=== PATIENT | female | born 1990 | race African-American/Black ===

== ENCOUNTER 2019-03-01 15:02 | Observation (INO) | payer MEDICAID | END 2019-04-23 14:54 | disposition home or self-care (01) | LOC: 8 EST LDRP 04-23 13:51 | PROVIDERS: ADMIT Obstetrics & Gynecology; ATTEND Obstetrics & Gynecology | DX: O62.9 Abnormality of forces of labor, unspecified (principal); Z3A.39 39 weeks gestation of pregnancy | CPT/HCPCS: 99281; G0378 ==

== ENCOUNTER 2019-04-26 17:14 | Inpatient (IN) | payer MEDICAID ==
[~2019-04-26] VITALS: Ht 167.6 cm; Wt 173.7 kg
[2019-04-26] MEDS ORDERED: LACTATED RINGERS 1,000 ML IV SCH ×2 (18:39→19:15)
[2019-04-26] MEDS ORDERED: DEXT 5%/LR + PITOCIN 20UNITS/L 1,000 ML IV SCH (18:39)
[2019-04-26] MEDS ORDERED: BUTORPHANOL TARTRATE 2 MG/ML VIAL IV PRN (18:45)
[2019-04-26] MEDS ORDERED: LIDOCAINE HCL 1% 20ML VIAL (Pyxis) INJ INFIL SCH (18:45)
[2019-04-26] MEDS ORDERED: MISOPROSTOL 100MCG TABLET VG SCH (18:45)
[2019-04-26] MEDS ORDERED: METHYLERGONOVINE MALEATE 0.2 MG/ML IM PRN (18:45)
[2019-04-26] MEDS ORDERED: DINOPROSTONE 10MG VAGINAL INSERT VG NR (18:45)
[2019-04-26] MEDS ORDERED: CARBOPROST TROMETHAMINE 250 MCG/ML AMPUL IM PRN (18:45)
[2019-04-26] MEDS ORDERED: NALOXONE HCL 0.4 MG/ML 1ML VIAL IM PRN (18:45)
[2019-04-26 18:58] LABS: CLARITY URINE CLOUDY (CLEAR); COLOR URINE YELLOW (YELLOW); KETONES URINE TRACE (NEGATIVE); LEUKOCYTE ESTERASE URINE 1+ (NEGATIVE); NITRITE URINE NEGATIVE (NEGATIVE); OCCULT BLOOD URINE NEGATIVE (NEGATIVE); PH URINE 6.5 (4.5-8.0); PROTEIN URINE TRACE (NEGATIVE); SPECIFIC GRAVITY URINE 1.028 (1.005-1.030)
[2019-04-26 19:00] LABS: BASOPHILS % 0.2 % (0.0-2.0); EOSINOPHILS % 0.3 % (0.0-5.0); HEMATOCRIT. 32.5 % (36.0-48.0); HEMOGLOBIN. 10.6 g/dL (12.0-16.0); LYMPHOCYTES % 16.8 % (20.0-50.0); MEAN CORPUSCULAR HEMOGLOBIN 29.1 pg (28.0-32.0); MEAN CORPUSCULAR VOLUME 89.8 fL (81.0-99.0); MEAN PLATELET VOLUME 9.5 fl (7.4-10.4); MONOCYTES % 7.2 % (2.0-8.0); NEUTROPHILS % 75.5 % (40.0-76.0); PLATELET 348 x1000/uL (130-400); RED BLOOD CELL COUNT 3.62 mill/uL (4.2-5.4); RED CELL DISTRIBUTION WIDTH 15.9 % (11.6-14.6)
[2019-04-26 19:05] LABS: INR 0.9; PARTIAL THROMBOPLASTIN TIME 26.5 sec (23.4-31.0); PROTHROMBIN TIME 9.3 sec (9.6-11.0)
[2019-04-26 19:09] LABS: *AMPHETAMINES SCREEN URINE NEGATIVE (NEGATIVE); *BARBITURATES SCREEN URINE NEGATIVE (NEGATIVE); *BENZODIAZEPINES SCREEN URINE NEGATIVE (NEGATIVE); *COCAINE SCREEN URINE NEGATIVE (NEGATIVE); METHADONE URINE SCREEN NEGATIVE (NEGATIVE)
[2019-04-26 19:11] LABS: CANNABINOID URINE SCREEN NEGATIVE (NEGATIVE); OPIATES URINE SCREEN NEGATIVE (NEGATIVE); PHENCYCLIDINE URINE SCREEN NEGATIVE (NEGATIVE)
[2019-04-26 19:38] LABS: HEPATITIS B SURFACE ANTIGEN NEGATIVE
[2019-04-27] MEDS ORDERED: TETANUS, DIPHTHERIA, PERTUSSIS VAC/PF 0.5ML (>7YR OLD) IM ONE (07:15)
[2019-04-27] MEDS ORDERED: BISACODYL 10MG SUPP PR PRN (07:15)
[2019-04-27] MEDS ORDERED: BENZOCAINE/LANOLIN/ALOE VERA SPRAY TOP PRN ×2 (07:15→09:15)
[2019-04-27] MEDS ORDERED: DIPHENHYDRAMINE 25MG CAPSULE PO PRN (07:15)
[2019-04-27] MEDS ORDERED: IBUPROFEN 400MG TABLET PO PRN (07:15)
[2019-04-27] MEDS ORDERED: LANOLIN OINT 7GM TUBE TOP PRN (07:15)
[2019-04-27] MEDS ORDERED: GLYCERIN/WITCH HAZEL LEAF MEDICATED PAD TOP PRN (07:15)
[2019-04-27] MEDS ORDERED: HEMORRHOIDAL SUPP PR PRN (07:15)
[2019-04-27] MEDS ORDERED: INFLUENZA VIRUS VACCINE(AFLURIA) 0.5ML SYR IM ONE (07:15)
[2019-04-27] MEDS ORDERED: ACETAMINOPHEN WITH CODEINE 300/30MG TABLET PO PRN (07:15)
[2019-04-27] MEDS ORDERED: DEXT 5%/LR + PITOCIN 20UNITS/L 1,000 ML IV SCH (07:30)
[2019-04-27 08:35] VITALS: BP 122/70
[2019-04-27] MEDS ORDERED: PRENATAL VIT/FE FUMARATE/FA TABLET PO SCH (09:00)
[2019-04-27] MEDS: IBUPROFEN 800MG TABLET PO PRN ×3 (09:04→20:38)
[2019-04-27 10:00] VITALS: BP 118/64
[2019-04-27 15:00] VITALS: BP 120/62
[2019-04-27 19:15] VITALS: BP 134/58
[2019-04-27] MEDS: DOCUSATE SODIUM 100MG CAPSULE PO SCH (20:36)
[2019-04-27 23:30] VITALS: BP 140/73
[2019-04-28] MEDS: IBUPROFEN 800MG TABLET PO PRN ×3 (06:47→22:01)
[2019-04-28 07:18] LABS: BASOPHILS % 0.4 % (0.0-2.0); EOSINOPHILS % 0.3 % (0.0-5.0); HEMATOCRIT. 32.2 % (36.0-48.0); HEMOGLOBIN. 10.4 g/dL (12.0-16.0); LYMPHOCYTES % 16.9 % (20.0-50.0); MEAN CORPUSCULAR HEMOGLOBIN 28.9 pg (28.0-32.0); MEAN CORPUSCULAR VOLUME 89.9 fL (81.0-99.0); MEAN PLATELET VOLUME 9.3 fl (7.4-10.4); NEUTROPHILS % 73.4 % (40.0-76.0); PLATELET 298 x1000/uL (130-400); RED BLOOD CELL COUNT 3.58 mill/uL (4.2-5.4); RED CELL DISTRIBUTION WIDTH 15.6 % (11.6-14.6)
[2019-04-28] MEDS: FERROUS SULFATE 325MG TABLET PO SCH ×3 (07:30→13:31)
[2019-04-28 08:10] VITALS: BP 148/85
[2019-04-28 16:38] VITALS: BP 130/65
[2019-04-28 20:00] VITALS: BP 143/79
[2019-04-28] MEDS: DOCUSATE SODIUM 100MG CAPSULE PO SCH (22:00)
[2019-04-28] MEDS ORDERED: BISACODYL 5MG TABLET PO PRN (22:30)
[2019-04-29] VITALS: BP 140/80
[2019-04-29] MEDS ORDERED: IBUP-2030 PO (01:35)
[2019-04-29] MEDS ORDERED: IBUP-2030 MT (01:37)
[2019-04-29 03:50] VITALS: BP 154/82
[2019-04-29] MEDS: IBUPROFEN 800MG TABLET PO PRN (03:50)
[2019-04-29 07:15] VITALS: BP 136/80
== END 2019-04-29 10:00 | disposition home or self-care (01) | DRG 542 ==
LOC: 8 EST LDRP 17:14 → OBSVTOIN 17:14 → 8EST 04-27 08:43
PROVIDERS: ADMIT Obstetrics & Gynecology; ATTEND Obstetrics & Gynecology
PROC: 10E0XZZ Delivery of Products of Conception, External Approach (ICD-10-PCS; principal; 2019-04-27)
PROC: 0DQR0ZZ Repair Anal Sphincter, Open Approach (ICD-10-PCS; 2019-04-27)
DX: O99.02 Anemia complicating childbirth (principal); E66.01 Morbid (severe) obesity due to excess calories; O70.20 Third degree perineal laceration during delivery, unspecified; O99.214 Obesity complicating childbirth; O69.81X0 Labor and delivery complicated by cord around neck, without compression, not applicable or unspecified; Z37.0 Single live birth; Z3A.40 40 weeks gestation of pregnancy
CPT/HCPCS: 36415; 80305; 81003; 86592; 86703; 86762; 86850; 86900; 87340; J0595; J2590; J3490